=== PATIENT | male | born 1980 | race Caucasian/White ===

== ENCOUNTER 2018-09-15 12:51 | Emergency (ER) | payer MEDICAID ==
[~2018-09-15] VITALS: Ht 180.3 cm; Wt 31.8 kg
[2018-09-15 13:46] VITALS: BP 130/91
== END 2018-09-15 13:47 | disposition home or self-care (01) ==
LOC: EDBD 12:52 → ER 12:52
DX: F41.9 Anxiety disorder, unspecified (principal); F17.200 Nicotine dependence, unspecified, uncomplicated
CPT/HCPCS: 99284